=== PATIENT | female | born 1960 | race Hispanic/Latino ===

== ENCOUNTER 2017-09-29 20:04 | Emergency (ER) | payer BC ==
[2017-09-29 20:37] LABS: Bilirubin Negative (Negative); Blood, Urine Negative (Negative); Glucose, Urine (Dipstick) Negative (Negative); Ketone, Urine Negative (Negative); Nitrite Positive (Negative); Protein, Urine (Dipstick) Trace mg/dL (Neg-Trace)
[2017-09-29 20:40] LABS: Bacteria/HPF None Seen HPF (None Seen); Hyaline Casts/LPF 0-3 HYALINE CAST LPF (0-3 Hyaline); Squamous Epithelial 0-3 HPF (0-3)
== END 2017-09-29 21:46 | disposition home or self-care (01) ==
LOC: ERS 20:04
DX: N39.0 Urinary tract infection, site not specified (principal); I10 Essential (primary) hypertension
CPT/HCPCS: 81003; 81015; 87086; 99283

== ENCOUNTER 2018-02-12 19:44 | Emergency (ER) | payer BC | END 2018-02-12 22:14 | disposition left against medical advice (07) | LOC: ERS 19:44 | DX: Z53.21 Procedure and treatment not carried out due to patient leaving prior to being seen by health care provider (principal) ==

== ENCOUNTER 2018-02-26 15:21 | Outpatient (CLI) | payer BC | END 2018-02-26 15:22 | disposition home or self-care (01) | LOC: BICMRI 15:21 | PROVIDERS: ATTEND Family Medicine | DX: M75.42 Impingement syndrome of left shoulder (principal); M25.512 Pain in left shoulder; M75.122 Complete rotator cuff tear or rupture of left shoulder, not specified as traumatic; M19.012 Primary osteoarthritis, left shoulder ==

== ENCOUNTER 2018-04-04 15:52 | Outpatient (CLI) | payer BC ==
[2018-04-04 17:00] LABS: #Lymphocytes 1.4 thou/uL (1.20-3.40); #Monocytes 0.5 thou/uL (0.11-0.59); #Neutrophils 3.4 thou/uL (1.40-6.50); %Basophils 0.9 % (0.0-1.0); %Eosinophils 0.8 % (0.0-10.0); %Lymphocytes 25.3 % (21.0-51.0); %Monocytes 9.2 % (0.0-10.0); %Neutrophils 63.7 % (42.0-75.0); Hemoglobin 11.7 g/dL (12.0-16.0); Mean Corpuscular HGB CONC 33.7 g/dL (32.0-36.0); Mean Corpuscular Hemoglobin 32.4 pg (27.0-31.0); Mean Corpuscular Volume 96.1 fl (81.0-99.0); Mean Platelet Volume 8.8 fL (7.4-10.4); Platelet Count 229 thou/uL (130-400); RBC Distribution Width 11.4 % (11.5-14.5); Red Blood Cell (RBC) Count 3.62 mill/uL (4.20-5.40); White Blood Cell (WBC) Count 5.4 thou/uL (4.8-10.8)
[2018-04-04 17:18] LABS: Anion Gap 14 mmol/L (10-20); BUN (Urea Nitrogen) 28 mg/dL (9.8-20.1); Calc. Creatinine Clearance 0 mL/min (70-130); Calcium 8.9 mg/dL (7.8-10.44); Carbon Dioxide 21 mmol/L (22-29); Chloride 108 mmol/L (98-107); Estimated GFR-MDRD 71; Glucose 87 mg/dL (70-105); Potassium 3.7 mmol/L (3.5-5.1); Sodium 139 mmol/L (136-145)
== END 2018-04-04 15:53 | disposition home or self-care (01) ==
LOC: LABBT 15:52
PROVIDERS: ATTEND Orthopaedic Surgery
DX: Z01.818 Encounter for other preprocedural examination (principal); M75.102 Unspecified rotator cuff tear or rupture of left shoulder, not specified as traumatic
CPT/HCPCS: 80048; 85025; 93005; 93010

== ENCOUNTER 2018-04-12 05:37 | Day surgery (SDC) | payer BC ==
[2018-04-04 16:06] VITALS: BMI 29.2
[2018-04-12] MEDS ORDERED: Lidocaine 2% Jelly 5 ML TUBE ONE (05:51)
[2018-04-12] MEDS ORDERED: Ondansetron HCl/PF 4 MG/2 ML Vial ONE ×2 (05:51→13:16)
[2018-04-12] MEDS ORDERED: CEFAZOLIN/Water 2 GM/20 ML SYRINGE ONE (06:12)
[2018-04-12] MEDS ORDERED: Midazolam HCl 2 mg/2 ml Vial ONE (06:23)
[2018-04-12] MEDS ORDERED: Fentanyl 100 MCG/2 ML VIAL ONE (06:23)
[2018-04-12] MEDS ORDERED: Ropivacaine HCl/PF 1,100 MG in Sodium Chloride 0.9% 440 ML NERVE BLCK SCH (07:11)
[2018-04-12] MEDS ORDERED: Ondansetron HCl/PF 4 MG/2 ML Vial IVP PRN (07:11)
[2018-04-12] MEDS ORDERED: Promethazine HCl 25 MG/ML VIAL IM PRN (07:11)
[2018-04-12] MEDS ORDERED: HYDROcodone/Acetaminophen 5/325 mg Tablet PO PRN ×2 (07:11)
[2018-04-12] MEDS ORDERED: Zolpidem Tartrate 5 MG TAB PO PRN (07:11)
[2018-04-12] MEDS ORDERED: traMADol HCl 50 MG TAB PO PRN ×2 (07:11)
[2018-04-12] MEDS ORDERED: Fentanyl 100 MCG/2 ML VIAL SLOW IVP PRN (07:12)
[2018-04-12] MEDS ORDERED: Ropivacaine 0.5% HCl/PF (150 MG/30 ML VIAL) ONE (10:43)
[2018-04-12] MEDS ORDERED: Ropivacaine 0.2% HCl/PF 20 ML ONE (10:44)
[2018-04-12] MEDS ORDERED: ePHEDrine/0.9% NaCl/PF SYRINGE 50 mg/10 ml ONE (13:16)
[2018-04-12] MEDS ORDERED: Glycopyrrolate 0.2 MG/ML 5 ML SYRINGE ONE (13:16)
[2018-04-12] MEDS ORDERED: PROPOFOL 200 MG/20 ML VIAL ONE (13:16)
[2018-04-12] MEDS ORDERED: Dexamethasone 20 MG/5 ML VIAL ONE (13:16)
[2018-04-12] MEDS ORDERED: PHENYLEPHRINE-NS 100 MCG/ML 10 ML SYRINGE ONE (13:16)
--- NOTE | 2018-04-12 16:38 | OP ---
PREOPERATIVE DIAGNOSES: Rotator cuff tear and impingement, left shoulder. POSTOPERATIVE DIAGNOSES: Rotator cuff tear and impingement, left shoulder. SURGEON: Arnoldo Espana M.D. ANESTHESIA: General. BLOOD LOSS: Minimal. SPECIMEN: None. DRAINS: None. COMPLICATIONS: None. No assistance was used. DESCRIPTION OF PROCEDURE: The patient was placed in right lateral decubitus position. Left arm was placed in traction, prepped and draped in the usual sterile fashion. Scope was placed in the glenohu meral joint. She had a moderately large rotator cuff tear. She had some biceps fraying, but (0 0:21) symptomatic in the biceps region, so I did not do biceps tenodesis or tenotomy. Scope was plac ed in the subacromial bursa, performed a bursectomy, anterior and inferior decompression. Once the s ubacromial space was well decompressed, I mobilized the rotator cuff. I placed two corkscrew sutures in the greater tuberosity which had been freshened with a shaver. I did not decorticate the humerus and unfortunately she had very poor bone quality, even with the intact cortex little bit worried abo ut fixation here. I placed sutures through the rotator cuff and tied them down to this freshened bon e and then reinforced with a double row device, specifically Arthrex SwiveLock. Shoulder was then dr ained. Portals closed with nylon suture. Sterile dressings applied.
== END 2018-04-12 11:15 | disposition home or self-care (01) ==
LOC: SDC 05:37
PROVIDERS: ATTEND Orthopaedic Surgery
PROC: 0RNK4ZZ Release Left Shoulder Joint, Percutaneous Endoscopic Approach (ICD-10-PCS; principal; 2018-04-12)
PROC: 0LQ24ZZ Repair Left Shoulder Tendon, Percutaneous Endoscopic Approach (ICD-10-PCS; principal; 2018-04-12)
DX: M75.102 Unspecified rotator cuff tear or rupture of left shoulder, not specified as traumatic (principal); Z98.890 Other specified postprocedural states
CPT/HCPCS: C1713; G8984-GP-CK; G8985-GP-CK; G8986-GP-CK; J2250; J2405; J2795; J3010; J7050

== ENCOUNTER 2018-04-13 10:09 | Emergency (ER) | payer BC ==
[2018-04-13 10:52] LABS: Clarity CLEAR (Clear); Leukocyte Negative (Negative); Specific Gravity, Urine 1.025 (1.002-1.036); pH, Urine 6.5 (5.0-9.0)
[2018-04-13 10:53] LABS: Bilirubin Negative (Negative); Blood, Urine Negative (Negative); Glucose, Urine (Dipstick) Negative (Negative); Nitrite Negative (Negative); Protein, Urine (Dipstick) Negative (Neg-Trace)
== END 2018-04-13 13:40 | disposition home or self-care (01) ==
LOC: ERS 10:09
DX: N32.89 Other specified disorders of bladder (principal); I10 Essential (primary) hypertension
CPT/HCPCS: 51702; 81003; 87086

== ENCOUNTER 2018-07-16 13:02 | Outpatient (CLI) | payer BC | END 2018-07-16 13:03 | disposition home or self-care (01) | LOC: BICRAD 13:02 | PROVIDERS: ATTEND Podiatrist | DX: M79.674 Pain in right toe(s) (principal); M19.071 Primary osteoarthritis, right ankle and foot ==

== ENCOUNTER 2018-07-17 13:00 | Outpatient (CLI) | payer BC | END 2018-07-17 13:01 | disposition home or self-care (01) | LOC: BICMAMMO 13:00 | PROVIDERS: ATTEND Family Medicine | DX: Z12.31 Encounter for screening mammogram for malignant neoplasm of breast (principal) | CPT/HCPCS: 77063; 77067 ==

== ENCOUNTER 2018-10-24 21:11 | Emergency (ER) | payer BC ==
[~2018-10-24 21:11] MED LIST: Iopamidol 370 76% 100 ML VIAL ONE
[2018-10-24 21:51] LABS: Bilirubin Negative (Negative); Blood, Urine Negative (Negative); Clarity CLEAR (Clear); Glucose, Urine (Dipstick) Negative (Negative); Leukocyte Trace (Negative); Nitrite Negative (Negative); Protein, Urine (Dipstick) Negative (Neg-Trace); Specific Gravity, Urine 1.009 (1.002-1.036); Urobilinogen 0.2 mg/dL (0.2-1.0)
[2018-10-24 21:53] LABS: Bacteria/HPF None Seen HPF (None Seen); Hyaline Casts/LPF 0-3 HYALINE CAST LPF (0-3 Hyaline); RBC/HPF 0-3 HPF (0-3); Squamous Epithelial 0-3 HPF (0-3); WBC/HPF 0-3 HPF (0-3)
[2018-10-24] MEDS ORDERED: Ondansetron PF 4 MG/2 ML Vial ONE (22:50)
[2018-10-24] MEDS ORDERED: Morphine 4 MG/ML VIAL ONE (22:50)
--- NOTE | 2018-10-24 22:51 | RAD ---
PORTABLE CHEST: 10/24/18 HISTORY: Epigastric pain. COMPARISON: 07/03/17 study. Heart size is within normal limits. There are atherosclerotic changes within the aorta. Lungs are юлия ar of infiltrates. Postoperative changes of both shoulders and cervical spine are seen. IMPRESSION: Borderline heart size. POS: [facility]
[2018-10-24 23:03] LABS: #Eosinphils 0.1 thou/uL (0.0-0.7); #Lymphocytes 1.4 thou/uL (1.20-3.40); #Monocytes 0.5 thou/uL (0.11-0.59); #Neutrophils 3.5 thou/uL (1.40-6.50); %Basophils 0.6 % (0.0-1.0); %Eosinophils 1.3 % (0.0-10.0); %Lymphocytes 25.1 % (21.0-51.0); %Neutrophils 64.1 % (42.0-75.0); Hemoglobin 12.7 g/dL (12.0-16.0); Mean Corpuscular Hemoglobin 32.7 pg (27.0-31.0); Platelet Count 227 thou/uL (130-400); RBC Distribution Width 11.4 % (11.5-14.5); White Blood Cell (WBC) Count 5.5 thou/uL (4.8-10.8)
[2018-10-24 23:18] LABS: ALT (SGPT) 17 U/L (8-55); AST (SGOT) 24 U/L (5-34); Albumin 4.1 g/dL (3.5-5.0); Alkaline Phosphatase 129 U/L (40-150); Anion Gap 10 mmol/L (10-20); BUN (Urea Nitrogen) 22 mg/dL (9.8-20.1); Bilirubin, Total 0.4 mg/dL (0.2-1.2); CK (CPK) 78 U/L (29-168); Calc. Creatinine Clearance 0 mL/min (70-130); Calcium 9.1 mg/dL (7.8-10.44); Carbon Dioxide 27 mmol/L (22-29); Chloride 104 mmol/L (98-107); Estimated GFR-MDRD 83; Globulin 2.7 g/dL (2.4-3.5); Glucose 96 mg/dL (70-105); Lipase 17 U/L (8-78); Potassium 4.2 mmol/L (3.5-5.1); Protein, Total 6.8 g/dL (6.0-8.3); Sodium 137 mmol/L (136-145)
--- NOTE | 2018-10-24 23:32 | CT ---
CT ANGIO OF CHEST AND ABDOMEN PERFORMED WITH INTRAVENOUS CONTRAST ENHANCEMENT WITH 3D RECONSTRUCTIONS : 10/24/18 HISTORY: Abdominal and epigastric pain radiating to back. History of gastric bypass and hysterectomy. The lungs are clear of any infiltrative process. No pulmonary nodules or pleural effusions are identi fied. No significant mediastinal or hilar lymphadenopathy is seen. There is fairly good pulmonary artery op acification. No CT evidence for pulmonary embolus. Thoracic aorta is normal in caliber without dissection. Coronary artery calcifications s are present. CT ANGIO OF ABDOMEN PERFORMED WITH INTRAVENOUS CONTRAST ENHANCEMENT AND 3D RECONSTRUCTIONS: The liver, spleen, and pancreas regions appear unremarkable given angiographic phase of the exam. Gal lbladder has been removed. Postoperative changes of the stomach are present. Right and left adrenal glands and right and left kidneys are normal in size. The abdominal aorta is normal in caliber. Celiac and superior mesenteric arteries appear unremarkable . There are single renal arteries bilaterally. No dissection or aneurysm. IMPRESSION: No evidence of aortic aneurysm or dissection. POS: [facility]
[2018-10-24] MEDS ORDERED: Mag-Al 1200 mg/1200 mg/30 ML UDCUP ONE (23:52)
[2018-10-24] MEDS ORDERED: Lidocaine Viscous Sol 2% 15 ml UD Cup ONE (23:52)
--- NOTE | 2018-10-27 14:09 | EKG ---
Test Reason : Blood Pressure : / mmHG Vent. Rate : 059 BPM Atrial Rate : 059 BPM P-R Int : 132 ms QRS Dur : 092 ms QT Int : 436 ms P-R-T Axes : 016 011 034 degrees QTc Int : 431 ms Sinus bradycardia Minimal voltage criteria for LVH, may be normal variant Borderline ECG Confirmed by GIOVANA LARA, JACQUES Contreras ([id number]), graphic editor NICOLE CARDENAS ([id number]) on 10/27/2018 2:09:42 PM Referred By: Confirmed By:JACQUES AKHTAR MD
== END 2018-10-25 00:17 | disposition home or self-care (01) ==
LOC: ERS 21:11
DX: K21.9 Gastro-esophageal reflux disease without esophagitis (principal); I10 Essential (primary) hypertension; Z87.442 Personal history of urinary calculi
CPT/HCPCS: 36415; 71045; 71275; 80053; 81003; 81015; 82550; 83690; 84484; 85025; 93005; 96361; 96374; 96375; J2270; J2405

== ENCOUNTER 2019-03-01 22:04 | Emergency (ER) | payer BC ==
--- NOTE | 2019-03-01 22:42 | RAD ---
Left RIBS 3 views Chest 1 view HISTORY: Left chest pain. FINDINGS: No displaced rib fracture or thorax. Cardiac silhouette and pulmonary vasculature are unrem arkable. Mediastinum is midline. Postoperative changes of the cervical spine. Mild S shaped curvature of the thoracic spine has the appearance of degenerative changes. IMPRESSION: No significant abnormalities are demonstrated.
== END 2019-03-01 22:55 | disposition home or self-care (01) ==
LOC: ERS 22:04
DX: S29.011A Strain of muscle and tendon of front wall of thorax, initial encounter (principal); I10 Essential (primary) hypertension; X58.XXXA Exposure to other specified factors, initial encounter

== ENCOUNTER 2019-07-21 08:32 | Emergency (ER) | payer BC, SELFPAY ==
--- NOTE | 2019-07-21 09:17 | RAD ---
EXAM: Right shoulder 3 views: HISTORY: Right shoulder pain, possible injury COMPARISON: None FINDINGS: Evidence for rotator cuff surgery with 2 internal fixation anchors in the greater tuberosity. Degenerative changes. No acute fracture or dislocation or other significant acute osseous abnormality. IMPRESSION: No significant acute process.
[2019-07-21] MEDS ORDERED: Ketorolac Tromethamine 30 MG/ML VIAL ONE (09:31)
== END 2019-07-21 09:46 | disposition home or self-care (01) ==
LOC: ERS 08:32
DX: M25.511 Pain in right shoulder (principal); I10 Essential (primary) hypertension; Z79.899 Other long term (current) drug therapy
CPT/HCPCS: 96372; J1885

== ENCOUNTER 2019-07-29 16:26 | Outpatient (CLI) | payer BC ==
[2019-07-29 17:02] LABS: #Eosinphils 0.1 thou/uL (0.0-0.7); #Lymphocytes 1.3 thou/uL (1.20-3.40); #Monocytes 0.5 thou/uL (0.11-0.59); #Neutrophils 2.6 thou/uL (1.40-6.50); %Basophils 0.5 % (0.0-1.0); %Eosinophils 1.9 % (0.0-10.0); %Lymphocytes 28.2 % (21.0-51.0); %Monocytes 10.7 % (0.0-10.0); %Neutrophils 58.8 % (42.0-75.0); Hemoglobin 11.7 g/dL (12.0-16.0); Mean Corpuscular HGB CONC 34.3 g/dL (32.0-36.0); Mean Platelet Volume 9.7 fL (7.4-10.4); Platelet Count 181 thou/uL (130-400); RBC Distribution Width 11.3 % (11.5-14.5); Red Blood Cell (RBC) Count 3.54 mill/uL (4.20-5.40); White Blood Cell (WBC) Count 4.4 thou/uL (4.8-10.8)
[2019-07-29 17:24] LABS: Anion Gap 9 mmol/L (10-20); BUN (Urea Nitrogen) 28 mg/dL (9.8-20.1); Calc. Creatinine Clearance 0 mL/min (70-130); Calcium 9.8 mg/dL (7.8-10.44); Carbon Dioxide 30 mmol/L (22-29); Chloride 105 mmol/L (98-107); Estimated GFR-MDRD 79; Glucose 85 mg/dL (70-105); Potassium 4.2 mmol/L (3.5-5.1); Sodium 140 mmol/L (136-145)
== END 2019-07-29 16:27 | disposition home or self-care (01) ==
LOC: LABBT 16:26
PROVIDERS: ATTEND Orthopaedic Surgery
DX: Z01.812 Encounter for preprocedural laboratory examination (principal); M75.101 Unspecified rotator cuff tear or rupture of right shoulder, not specified as traumatic
CPT/HCPCS: 80048; 85025

== ENCOUNTER 2019-08-01 06:06 | Day surgery (SDC) | payer BC ==
[2019-07-29 16:36] VITALS: BMI 30.2
[2019-08-01] MEDS ORDERED: Lidocaine 1% (PF) 30 ML VIAL ONE (06:32)
[2019-08-01] MEDS ORDERED: Fentanyl 100 MCG/2 ML VIAL ONE ×2 (06:32→06:36)
[2019-08-01] MEDS ORDERED: Midazolam HCl 2 mg/2 ml Vial ONE ×2 (06:32→06:36)
[2019-08-01] MEDS ORDERED: Zolpidem Tartrate 5 MG TAB PO PRN (07:25)
[2019-08-01] MEDS ORDERED: HYDROcodone/Acetaminophen 10/325 mg Tablet PO PRN ×2 (07:25)
[2019-08-01] MEDS ORDERED: Ropivacaine 0.2% 550 ML 550 ML NERVE BLCK SCH (07:25)
[2019-08-01] MEDS ORDERED: Promethazine HCl 25 MG/ML VIAL IM PRN (07:25)
[2019-08-01] MEDS ORDERED: Ondansetron PF 4 MG/2 ML Vial IVP PRN (07:25)
[2019-08-01] MEDS ORDERED: traMADol HCl 50 MG TAB PO PRN ×2 (07:25)
--- NOTE | 2019-08-02 08:26 | OP ---
DATE OF PROCEDURE: 08/01/2019 PREOPERATIVE DIAGNOSES: Rotator cuff tear, massive right with biceps tear. POSTOPERATIVE DIAGNOSIS: Rotator cuff tear, massive right with biceps tear. PROCEDURE PERFORMED: Open rotator cuff repair. The biceps was not repairable. Acromioplasty was performed. MANAGER ORDER: Ivanna Strange PA-C ESTIMATED BLOOD LOSS: Minimal. SPECIMENS: None. DRAINS: None. COMPLICATIONS: None. DESCRIPTION OF PROCEDURE: The patient was taken to the operating room, where general anesthesia was induced. Her right arm was prepped and draped in usual sterile fashion. I made a standard deltoid-splitting approach, performed anterior and inferior acromioplasty. I freshened the greater tuberosity and I freshened up the margin of the rotator cuff tear. This was a large tear. I used a convergent Cottony Dacron suture to oppose the infraspinatus to the supraspinatus and subscapularis remnant. This was tied and then I placed 2 anchors to the greater tuberosity and used Kaleb-Laith type sutures for a good watertight repair and then reinforced this with a double row repair using SwiveLock device. Irrigation was performed. Deltoid was repaired back to bone with #1 Ethibond suture, subcu closed with 2-0 Vicryl, and skin was closed with shabbir. Job ID: [id number]
== END 2019-08-01 12:08 | disposition home or self-care (01) ==
LOC: SDC 06:06
PROVIDERS: ATTEND Orthopaedic Surgery
PROC: 0LQ10ZZ Repair Right Shoulder Tendon, Open Approach (ICD-10-PCS; principal; 2019-08-01)
PROC: 3E0T3BZ Introduction of Anesthetic Agent into Peripheral Nerves and Plexi, Percutaneous Approach (ICD-10-PCS; principal; 2019-08-01)
PROC: 0RQG0ZZ Repair Right Acromioclavicular Joint, Open Approach (ICD-10-PCS; principal; 2019-08-01)
DX: M75.101 Unspecified rotator cuff tear or rupture of right shoulder, not specified as traumatic (principal); S46.211A Strain of muscle, fascia and tendon of other parts of biceps, right arm, initial encounter; I10 Essential (primary) hypertension; G89.18 Other acute postprocedural pain; Z79.899 Other long term (current) drug therapy
CPT/HCPCS: 51702; 81003; 87086; A4306; C1713; J0690; J2001; J2250; J2795; J3010

== ENCOUNTER 2019-08-01 16:31 | Emergency (ER) | payer BC ==
[2019-08-01 16:55] LABS: Bilirubin Negative (Negative); Blood, Urine Negative (Negative); Clarity Clear (Clear); Glucose, Urine (Dipstick) 100 mg/dL (Negative); Leukocyte Negative Leu/uL (Negative); Nitrite Negative (Negative); Protein, Urine (Dipstick) Negative (Neg-Trace); Urobilinogen Normal mg/dL (Less than 2)
== END 2019-08-01 18:40 | disposition home or self-care (01) ==
LOC: ERS 16:31
DX: R33.9 Retention of urine, unspecified (principal)
CPT/HCPCS: 81003; 87086

== ENCOUNTER 2019-09-25 09:55 | Outpatient (CLI) | payer BC ==
--- NOTE | 2019-09-25 10:23 | MMO ---
Bilateral MAMMO Bilat Screen [facility]. CLINICAL HISTORY: Patient is 59 years old and is seen for screening. The patient has no family history of breast cancer. The patient has no personal history of cancer. VIEWS: The views performed were: bilateral craniocaudal; bilateral craniocaudal with tomosynthesis; and bilateral mediolateral oblique with tomosynthesis. FILMS COMPARED: The present examination has been compared to prior imaging studies performed at [facility] on 01/21/2010 and 07/17/2018, at [facility] on 11/16/2000, and at [facility] on 01/09/2002. This study has been interpreted with the assistance of computer-aided detection. MAMMOGRAM FINDINGS: There are scattered fibroglandular densities. There are no suspicious masses, suspicious calcifications, or new areas of architectural distortion. IMPRESSION: THERE IS NO MAMMOGRAPHIC EVIDENCE OF MALIGNANCY. A ROUTINE FOLLOW-UP MAMMOGRAM IN 1 YEAR IS RECOMMENDED. THE RESULTS OF THIS EXAM WERE SENT TO THE PATIENT. ACR BI-RADS Category 1 - Negative MAMMOGRAPHY NOTE: 1. A negative mammogram report should not delay a biopsy if a dominant of clinically suspicious mass is present. 2. Approximately 10% to 15% of breast cancers are not detected by mammography. 3. Adenosis and dense breasts may obscure an underlying neoplasm. Reported by: ALISON MCADAMS MD Electonically Signed: [id number]
== END 2019-09-25 09:56 | disposition home or self-care (01) ==
LOC: BICMAMMO 09:55
PROVIDERS: ATTEND Family Medicine
DX: Z12.31 Encounter for screening mammogram for malignant neoplasm of breast (principal)
CPT/HCPCS: 77063; 77067

== ENCOUNTER 2020-10-01 15:32 | Outpatient (CLI) | payer BC ==
--- NOTE | 2020-10-01 16:21 | MMO ---
Bilateral MAMMO Bilat Screen [facility]. CLINICAL HISTORY: Patient is 60 years old and is seen for screening. The patient has no family history of breast cancer. The patient has no personal history of cancer. VIEWS: The views performed were: bilateral craniocaudal with tomosynthesis; bilateral mediolateral oblique with tomosynthesis; and cleavage view. FILMS COMPARED: The present examination has been compared to prior imaging studies performed at [facility] on 01/21/2010, 07/17/2018 and 09/25/2019, and at [facility] on 01/09/2002. This study has been interpreted with the assistance of computer-aided detection. MAMMOGRAM FINDINGS: There are scattered fibroglandular densities. There are no suspicious masses, suspicious calcifications, or new areas of architectural distortion. IMPRESSION: THERE IS NO MAMMOGRAPHIC EVIDENCE OF MALIGNANCY. A ROUTINE FOLLOW-UP MAMMOGRAM IN 1 YEAR IS RECOMMENDED. THE RESULTS OF THIS EXAM WERE SENT TO THE PATIENT. ACR BI-RADS Category 1 - Negative MAMMOGRAPHY NOTE: 1. A negative mammogram report should not delay a biopsy if a dominant of clinically suspicious mass is present. 2. Approximately 10% to 15% of breast cancers are not detected by mammography. 3. Adenosis and dense breasts may obscure an underlying neoplasm. Reported by: XAVI STOKES MD Electonically Signed: [id number]
== END 2020-10-01 15:33 | disposition home or self-care (01) ==
LOC: BICMAMMO 15:32
PROVIDERS: ATTEND Physician Assistant
DX: Z12.31 Encounter for screening mammogram for malignant neoplasm of breast (principal)
CPT/HCPCS: 77063; 77067

== ENCOUNTER 2020-10-21 14:54 | Outpatient (CLI) | payer BC ==
--- NOTE | 2020-10-21 15:37 | BD ---
EXAM: Bone densitometry using DEXA HISTORY: 60 yo female. Screening for postmenopausal osteoporosis FINDINGS: L1--bone mineral density 0.765 g/sq cm; T score -2.0 ; Z score -0.7 L2--bone mineral density 0.737 g/sq cm; T score -2.6 ; Z score -1.1 L3--bone mineral density 0.837 g/sq cm; T score -2.2 ; Z score -0.7 L4--bone mineral density 0.788 g/sq cm; T score -2.5 ; Z score -0.9 Total L1-L4--bone mineral density 0.781 g/sq cm; T score -2.4 ; Z score -0.9 Left femoral neck--bone mineral density0.548; T score -2.7 ; Z score -1.4 Total proximal left femur--bone mineral density 0.861; T score -0.7 ; Z score 0.4 IMPRESSION: Osteoporosis
== END 2020-10-21 14:55 | disposition home or self-care (01) ==
LOC: BICMAMMO 14:54
PROVIDERS: ATTEND Physician Assistant
DX: Z13.820 Encounter for screening for osteoporosis (principal); M19.90 Unspecified osteoarthritis, unspecified site; M81.0 Age-related osteoporosis without current pathological fracture
CPT/HCPCS: 77080

== ENCOUNTER 2021-02-07 10:33 | Emergency (ER) | payer BC ==
[2021-02-07] MEDS ORDERED: Ketorolac Tromethamine 30 MG/ML VIAL ONE (11:06)
== END 2021-02-07 11:25 | disposition home or self-care (01) ==
LOC: ERS 10:33
DX: M54.41 Lumbago with sciatica, right side (principal)
CPT/HCPCS: 96372; 99283; J1885

== ENCOUNTER 2021-09-30 15:42 | Emergency (ER) | payer BC ==
[2021-09-30] MEDS ORDERED: Morphine 4 MG/ML VIAL ONE (16:09)
== END 2021-09-30 16:55 | disposition home or self-care (01) ==
LOC: ERS 15:42
DX: M54.41 Lumbago with sciatica, right side (principal); Z79.899 Other long term (current) drug therapy; Z87.442 Personal history of urinary calculi
CPT/HCPCS: 96372; 99283; J2270

== ENCOUNTER 2022-05-06 13:27 | Outpatient (CLI) | payer OTHER | END 2022-05-06 13:28 | disposition home or self-care (01) | LOC: BICMAMMO 13:27 | PROVIDERS: ATTEND Family Medicine | DX: Z12.31 Encounter for screening mammogram for malignant neoplasm of breast (principal); Z13.820 Encounter for screening for osteoporosis; Z78.0 Asymptomatic menopausal state; M81.0 Age-related osteoporosis without current pathological fracture; M85.88 Other specified disorders of bone density and structure, other site | CPT/HCPCS: 77063; 77067; 77080 ==

== ENCOUNTER 2022-06-20 15:15 | Outpatient (CLI) | payer OTHER | END 2022-06-20 15:16 | disposition home or self-care (01) | LOC: BICRAD 15:15 | PROVIDERS: ATTEND Nurse Practitioner Family | DX: M43.16 Spondylolisthesis, lumbar region (principal) | CPT/HCPCS: 72110 ==

== ENCOUNTER 2022-08-16 12:04 | Outpatient (CLI) | payer OTHER | END 2022-08-16 12:05 | disposition home or self-care (01) | LOC: RAD 12:04 | PROVIDERS: ATTEND Family Medicine | DX: M25.551 Pain in right hip (principal) ==

== ENCOUNTER 2022-12-10 08:03 | Emergency (ER) | payer SELFPAY | END 2022-12-10 09:56 | disposition home or self-care (01) | LOC: ERS 08:03 | DX: M79.671 Pain in right foot (principal) ==

== ENCOUNTER 2023-09-13 08:53 | Outpatient (CLI) | payer BC | END 2023-09-13 08:54 | disposition home or self-care (01) | LOC: SCSMRI 08:53 | PROVIDERS: ATTEND Specialist | DX: M47.26 Other spondylosis with radiculopathy, lumbar region (principal); M48.061 Spinal stenosis, lumbar region without neurogenic claudication; M48.04 Spinal stenosis, thoracic region; M47.814 Spondylosis without myelopathy or radiculopathy, thoracic region; M47.817 Spondylosis without myelopathy or radiculopathy, lumbosacral region; M48.07 Spinal stenosis, lumbosacral region; M43.17 Spondylolisthesis, lumbosacral region | CPT/HCPCS: 72148 ==

== ENCOUNTER 2023-10-09 07:10 | Outpatient (CLI) | payer BC | END 2023-10-09 07:11 | disposition home or self-care (01) | LOC: BICCT 07:10 | PROVIDERS: ATTEND Surgery | DX: M48.062 Spinal stenosis, lumbar region with neurogenic claudication (principal); M47.816 Spondylosis without myelopathy or radiculopathy, lumbar region; M43.17 Spondylolisthesis, lumbosacral region; M48.07 Spinal stenosis, lumbosacral region; M89.38 Hypertrophy of bone, other site | CPT/HCPCS: 72131 ==

== ENCOUNTER 2024-02-27 06:00 | Inpatient (IN) | payer MEDICARE ==
[2024-02-23 09:04] VITALS: BMI 28.3
[2024-02-23 09:37] LABS: Hemoglobin 12.5 g/dL (12.0-15.5); Mean Corpuscular HGB CONC 34.7 g/dL (32.0-36.0); Mean Corpuscular Hemoglobin 32.3 pg (27.0-33.0); Mean Platelet Volume 12.5 fl (7.4-10.4); Platelet Count 200 10x3/uL (150-450); RBC Distribution Width 12.2 % (11.5-14.5); Red Blood Cell (RBC) Count 3.87 10x6/uL (3.90-5.03); White Blood Cell (WBC) Count 4.1 10x3/uL (3.5-10.5)
[2024-02-23 09:51] LABS: INR-International Normal Ratio 0.9; PTT 30.9 sec (22.0-33.0); Prothrombin Time 10.1 sec (9.5-12.1)
[2024-02-23 09:55] LABS: Anion Gap 11 mmol/L (10-20); BUN (Urea Nitrogen) 19 mg/dL (9.8-20.1); Calc. Creatinine Clearance 0 mL/min (70-130); Calcium 8.8 mg/dL (7.8-10.44); Carbon Dioxide 26 mmol/L (23-31); Chloride 108 mmol/L (98-107); Estimated GFR 94; Glucose 90 mg/dL (80-115); Potassium 4.1 mmol/L (3.5-5.1); Sodium 141 mmol/L (136-145)
[2024-02-27] MEDS ORDERED: Vancomycin 1 GM VIAL ONE (06:32)
[2024-02-27] MEDS ORDERED: Thrombin 5000 UNITS/5 ML VIAL ONE (06:33)
[2024-02-27] MEDS ORDERED: Lidocaine 1% PF 5 ML VIAL ONE (07:18)
[2024-02-27] MEDS ORDERED: Ketamine In 0.9 % NaCl 50 MG/5 ML SYRINGE ONE (07:18)
[2024-02-27] MEDS ORDERED: PROPOFOL 20 ML ONE (07:18)
[2024-02-27] MEDS ORDERED: Rocuronium Bromide 10 MG/ML (10ML VIAL) ONE (07:18)
[2024-02-27] MEDS ORDERED: Fentanyl 250 MCG/5 ML VIAL ONE (07:18)
[2024-02-27] MEDS ORDERED: CEFAZOLIN 2 GM VIAL ONE (07:24)
[2024-02-27] MEDS ORDERED: Sodium Chloride 0.9% 100 ML ONE (07:25)
[2024-02-27] MEDS ORDERED: Dexamethasone 20 MG/5 ML VIAL ONE (08:10)
[2024-02-27] MEDS ORDERED: Ondansetron PF 4 MG/2 ML Vial ONE (08:10)
[2024-02-27] MEDS ORDERED: Ketorolac Tromethamine 30 MG (1 mL) VIAL ONE (08:10)
[2024-02-27] MEDS ORDERED: PHENYLEPHRINE-NS 100 MCG/ML 10 ML SYRINGE ONE ×3 (08:42→14:49)
[2024-02-27] MEDS ORDERED: ePHEDrine Sulfate 50 MG/10 ML VIAL ONE (08:57)
[2024-02-27] MEDS ORDERED: Albumin 5% 500 ML ONE (09:49)
[2024-02-27] MEDS ORDERED: Vecuronium 10 MG VIAL ONE (09:58)
[2024-02-27] MEDS ORDERED: Sodium Chloride 0.9% 250 ML 250 ML ONE (12:00)
[2024-02-27] MEDS ORDERED: Sterile Water 20 ML ONE (12:16)
[2024-02-27] MEDS ORDERED: CEFAZOLIN 1 GM VIAL ONE (12:16)
[2024-02-27] MEDS ORDERED: NEOSTIGMINE 3 MG/3 ML SYR 3 MG/3 ML SYRINGE ONE (12:21)
[2024-02-27] MEDS ORDERED: Glycopyrrolate 0.2 MG/ML 5 ML SYRINGE ONE (12:21)
[2024-02-27] MEDS ORDERED: Ondansetron HCl/PF 4 MG/2 ML Vial IVP PRN (12:27)
[2024-02-27] MEDS ORDERED: HYDROmorphone 2 MG/ML VIAL SLOW IVP PRN (12:27)
[2024-02-27] MEDS ORDERED: Promethazine HCl 25 MG/ML VIAL IM PRN ×2 (12:27→14:00)
[2024-02-27] MEDS ORDERED: Morphine Sulfate 2 MG/ML SYRINGE SLOW IVP PRN (12:27)
[2024-02-27] MEDS ORDERED: PACU-Morphine 4MG/ML VIAL SLOW IVP PRN (12:27)
[2024-02-27] MEDS ORDERED: diphenhydrAMINE 25 MG CAP PO PRN (13:05)
[2024-02-27] MEDS ORDERED: Ondansetron PF 4 MG/2 ML Vial IVP PRN (13:05)
[2024-02-27] MEDS ORDERED: hydrALAZINE 20 MG/ML VIAL SLOW IVP PRN (13:07)
[2024-02-27] MEDS ORDERED: HYDROmorphone 2 MG/ML VIAL ONE (13:26)
[2024-02-27] MEDS ORDERED: Naloxone HCl 0.4 mg/ml Vial IV PRN (14:00)
[2024-02-27] MEDS ORDERED: diphenhydrAMINE 50 MG/ML VIAL IM/IV PRN (14:00)
[2024-02-27] MEDS ORDERED: Fentanyl CADD 100 ML IVPB SCH (14:00)
[2024-02-27] MEDS ORDERED: Albuterol HFA (OR) 200 PUFF INH ONE (14:27)
[2024-02-27] MEDS: Docusate 100 MG CAP PO SCH (20:59)
[2024-02-27] MEDS: CEFAZOLIN 2 GM in Sodium Chloride 0.9% 100 ML IVPB SCH (20:59)
[2024-02-27] MEDS: Sodium Chloride 0.9% 1,000 ML IV SCH (21:01)
[2024-02-27] MEDS: Acetaminophen 325 MG TAB PO PRN (21:10)
[2024-02-27] MEDS: Ondansetron PF 4 MG/2 ML Vial IVP PRN (21:13)
[2024-02-27] MEDS: rOPINIRole HCl 0.25 MG TAB PO SCH (22:24)
[2024-02-28 05:53] LABS: #Basophils Less than 0.03 10x3/uL (0.0-0.2); #Eosinphils Less than 0.03 10x3/uL (0.0-0.7); %Basophils 0.1 % (0.0-1.0); %Lymphocytes 9.3 % (21.0-51.0); %Monocytes 10.9 % (0.0-10.0); %Neutrophils 79.4 % (42.0-75.0); Hematocrit 26.8 % (36.0-47.0); Hemoglobin 8.8 g/dL (12.0-16.0); Mean Corpuscular HGB CONC 32.8 g/dL (32.0-36.0); Mean Corpuscular Hemoglobin 31.5 pg (27.0-31.0); Mean Corpuscular Volume 96.1 fL (78.0-98.0); Mean Platelet Volume 11.9 fL (7.4-10.4); Platelet Count 156 10x3/uL (130-400); RBC Distribution Width 12.4 % (11.5-14.5); Red Blood Cell (RBC) Count 2.79 mill/uL (4.20-5.40)
[2024-02-28 07:38] LABS: Anion Gap 9 mmol/L (10-20)
[2024-02-28 07:40] LABS: BUN (Urea Nitrogen) 12 mg/dL (9.8-20.1); Calc. Creatinine Clearance 89 mL/min (70-130); Carbon Dioxide 27 mmol/L (23-31); Chloride 109 mmol/L (98-107); Estimated GFR 97; Glucose 104 mg/dL (80-115); Potassium 3.9 mmol/L (3.5-5.1); Sodium 141 mmol/L (136-145)
[2024-02-28] MEDS: Cholecalciferol 1,000 UNITS (25 MCG) TAB PO SCH (08:43)
[2024-02-28] MEDS: Cyanocobalamin (Vitamin B-12) 1,000 MCG TAB PO SCH (08:44)
[2024-02-28] MEDS: Multivit, Therapeutic 1 TAB PO SCH (08:44)
[2024-02-28] MEDS: Calcium Carbonate 600 MG + Vit D TAB PO SCH (08:44)
[2024-02-28] MEDS ORDERED: HYDROcodone/Acetaminophen 5/325 mg Tablet PO PRN (08:48)
[2024-02-28] MEDS: Ketorolac Tromethamine 30 MG (1 mL) VIAL IVP PRN (15:07)
[2024-02-28] MEDS: HYDROcodone/Acetaminophen 10/325 mg Tablet PO PRN (16:30)
[2024-02-28] MEDS: Morphine 2 MG/ML VIAL SLOW IVP PRN (18:14)
[2024-02-28] MEDS: Methocarbamol 500 MG TAB PO PRN (19:51)
[2024-02-29 06:39] LABS: #Basophils Less than 0.03 10x3/uL (0.0-0.2); %Basophils 0.2 % (0.0-1.0); %Eosinophils 0.5 % (0.0-10.0); %Lymphocytes 15.6 % (21.0-51.0); %Monocytes 9.1 % (0.0-10.0); %Neutrophils 74.1 % (42.0-75.0); Hematocrit 29.1 % (36.0-47.0); Hemoglobin 9.9 g/dL (12.0-16.0); Mean Corpuscular Volume 94.2 fL (78.0-98.0); Mean Platelet Volume 12.5 fL (7.4-10.4); Platelet Count 148 10x3/uL (130-400); RBC Distribution Width 13.3 % (11.5-14.5); Red Blood Cell (RBC) Count 3.09 mill/uL (4.20-5.40)
[2024-02-29] MEDS: Acetaminophen/Codeine 30-300mg Tablet PO PRN (09:04)
[2024-03-02] MEDS: Milk Of Magnesia 30 ML UDCUP PO PRN (08:44)
[2024-03-03] MEDS: Diazepam 5 MG TAB PO PRN (12:56)
[2024-03-03 13:35] LABS: Bacteria/HPF None Seen HPF (None Seen); Bilirubin Negative (Negative); Blood, Urine Negative (Negative); CAUTI Indications for Culture Fever or rigors; Clarity Extra Turbid (Clear); Glucose, Urine (Dipstick) Normal (Negative); Ketone, Urine Negative (Negative); Leukocyte 25 Leu/uL (Negative); Mucous/LPF Rare LPF (<2+); Nitrite Negative (Negative); Protein, Urine (Dipstick) 10 mg/dL (Neg-Trace); RBC/HPF 0-3 HPF (0-3); Specific Gravity, Urine 1.022 (1.002-1.036); Squamous Epithelial None Seen HPF (0-3); Urobilinogen Normal mg/dL (Less than 2); pH, Urine 7.5 (5.0-9.0)
[2024-03-03 13:36] LABS: Urine Culture Reflex No No
[2024-03-03] MEDS: diphenhydrAMINE 25 MG CAP PO PRN (20:30)
[2024-03-04 08:55] VITALS: BP 107/65; TEMP 98.2
[2024-03-04] MEDS: Sulfameth/Trimethoprim DS 800-160mg TAB PO SCH (09:40)
== END 2024-03-04 16:15 | disposition home or self-care (01) | DRG 454 ==
LOC: SDC 06:00 → MSONC 13:04 → OBSVTOIN 02-28 08:48
PROVIDERS: ADMIT Surgery; ATTEND Surgery
PROC: 0SG30AJ Fusion of Lumbosacral Joint with Interbody Fusion Device, Posterior Approach, Anterior Column, Open Approach (ICD-10-PCS; principal; 2024-02-27)
PROC: 01NB0ZZ Release Lumbar Nerve, Open Approach (ICD-10-PCS; 2024-02-27)
PROC: 01NR0ZZ Release Sacral Nerve, Open Approach (ICD-10-PCS; 2024-02-27)
PROC: 0ST20ZZ Resection of Lumbar Vertebral Disc, Open Approach (ICD-10-PCS; 2024-02-27)
PROC: 30233N1 Transfusion of Nonautologous Red Blood Cells into Peripheral Vein, Percutaneous Approach (ICD-10-PCS; 2024-02-27)
PROC: 3E033XZ Introduction of Vasopressor into Peripheral Vein, Percutaneous Approach (ICD-10-PCS; 2024-02-27)
PROC: 30233J1 Transfusion of Nonautologous Serum Albumin into Peripheral Vein, Percutaneous Approach (ICD-10-PCS; 2024-02-27)
PROC: 0SG30K1 Fusion of Lumbosacral Joint with Nonautologous Tissue Substitute, Posterior Approach, Posterior Column, Open Approach (ICD-10-PCS; 2024-02-27)
DX: M48.062 Spinal stenosis, lumbar region with neurogenic claudication (principal); D62 Acute posthemorrhagic anemia; M48.07 Spinal stenosis, lumbosacral region; M43.16 Spondylolisthesis, lumbar region; M54.16 Radiculopathy, lumbar region
CPT/HCPCS: 36415; 36430; 71045; 80048; 81001; 85025; 85027; 85610; 85730; 86850; 86900; 86901; 93970; A4314; C1713; C1889; J0690; J1100; J1170; J1885; J2272; J2405; J2704; J3010; J3370; J3490; J7050; P9016; P9045

== ENCOUNTER 2024-04-09 08:15 | Outpatient (CLI) | payer MEDICARE | END 2024-04-09 08:16 | disposition home or self-care (01) | LOC: BICRAD 08:15 | PROVIDERS: ATTEND Physician Assistant | DX: M48.061 Spinal stenosis, lumbar region without neurogenic claudication (principal); M47.816 Spondylosis without myelopathy or radiculopathy, lumbar region; Z98.890 Other specified postprocedural states | CPT/HCPCS: 72100 ==

== ENCOUNTER 2025-07-16 13:48 | Outpatient (CLI) | payer OTHER | END 2025-07-16 13:49 | disposition home or self-care (01) | LOC: ULT 13:48 | PROVIDERS: ATTEND Internal Medicine Cardiovascular Disease | DX: M79.604 Pain in right leg (principal); M79.605 Pain in left leg | CPT/HCPCS: 93923 ==

== ENCOUNTER 2025-10-03 09:05 | Outpatient (CLI) | payer OTHER | END 2025-10-03 09:06 | disposition home or self-care (01) | LOC: MRI 09:05 | PROVIDERS: ATTEND Student in an Organized Health Care Education/Training Program | DX: Z47.89 Encounter for other orthopedic aftercare (principal); Z98.890 Other specified postprocedural states; M75.102 Unspecified rotator cuff tear or rupture of left shoulder, not specified as traumatic; M89.8X1 Other specified disorders of bone, shoulder ==